=== PATIENT | male | born 1935 | race Caucasian/White ===

== ENCOUNTER 2021-05-14 12:45 | Inpatient (IN) ==
[2021-05-14] MEDS: Pyridoxine (B-6) 50 MG TABLET PO SCH (20:02)
[2021-05-15 07:22] LABS: Basophils % 0.2 %; Eosinophils # 0.1 K/mcL (0.0-0.6); Eosinophils % 1.1 %; Hematocrit 24.7 % (37.5-50.1); Hemoglobin 8.2 g/dL (12.9-16.9); Immature Granulocytes % 1.1 % (0-4); Lymphocytes # 0.9 K/mcL (0.6-4.6); Lymphocytes % 14.5 %; Mean Corpuscular HGB Conc 33.2 g/dL (31.6-35.5); Mean Corpuscular Hemoglobin 30.8 pg (28.0-33.3); Mean Corpuscular Volume 92.9 fL (83.0-100.0); Mean Platelet Volume 10.8 fL (9.4-12.4); Monocytes # 0.7 K/mcL (0.0-1.3); Monocytes % 11.2 %; Neutrophils # 4.5 K/mcL (1.6-8.9); Nucleated Red Blood Cells 0.3 /100 WBC (0); Platelet Count 146 K/mcL (140-400); Red Blood Count 2.66 M/mcL (4.19-5.50); Red Cell Distribution Width 17.1 % (11.5-14.5); Segmented Neutrophils % 71.9 %; White Blood Count 6.3 K/mcL (4.3-11.1)
[2021-05-15 07:47] LABS: BUN/Creatinine Ratio 29 (6-26); Blood Urea Nitrogen 35 mg/dL (8-23); Calcium 8.4 mg/dL (8.6-10.3); Carbon Dioxide 24 mEq/L (23-29); Chloride 100 mEq/L (98-107); Glucose 102 mg/dL (70-105); Osmolality,Calculated 280 (280-300); Potassium 4.3 mEq/L (3.5-5.1); Sodium 131 mEq/L (136-145); eGFR For African Americans > 60 (> 60); eGFR For Non-African Americans 58 (> 60)
[2021-05-15] MEDS: Aspirin Enteric Coated 81 MG Tablet PO SCH (09:34)
[2021-05-15] MEDS: amLODIPine 5 MG TABLET PO SCH (09:35)
[2021-05-15] MEDS: allopurinoL 300 MG TABLET PO SCH (09:35)
[2021-05-15] MEDS: Cyanocobalamin (B-12) 1,000 MCG TABLET PO SCH (09:35)
[2021-05-15] MEDS ORDERED: *HR* OxyCODONE/APAP 5/325 TABLET PO PRN (13:10)
[2021-05-15] MEDS: lisinopriL 10 MG TABLET PO SCH (13:58)
[2021-05-15] MEDS: Finasteride 5 MG TABLET PO SCH (13:58)
[2021-05-15] MEDS: Pyridoxine (B-6) 50 MG TABLET PO SCH (18:35)
[2021-05-15] MEDS: Neosporin OINT 15 GM TUBE TP SCH (20:10)
[2021-05-16 07:15] LABS: Hematocrit 24.2 % (37.5-50.1); Hemoglobin 7.9 g/dL (12.9-16.9); Mean Corpuscular HGB Conc 32.6 g/dL (31.6-35.5); Mean Corpuscular Hemoglobin 30.7 pg (28.0-33.3); Mean Corpuscular Volume 94.2 fL (83.0-100.0); Mean Platelet Volume 10.5 fL (9.4-12.4); Platelet Count 154 K/mcL (140-400); Red Blood Count 2.57 M/mcL (4.19-5.50); Red Cell Distribution Width 17.4 % (11.5-14.5)
[2021-05-16] MEDS: Aspirin Enteric Coated 81 MG Tablet PO SCH (08:29)
[2021-05-16] MEDS: Cyanocobalamin (B-12) 1,000 MCG TABLET PO SCH (08:29)
[2021-05-16] MEDS: amLODIPine 5 MG TABLET PO SCH (08:29)
[2021-05-16] MEDS: polyethylene glycoL 3350 17 GM POWD.PACK PO SCH (08:30)
[2021-05-16] MEDS: Finasteride 5 MG TABLET PO SCH (08:30)
[2021-05-16] MEDS: allopurinoL 300 MG TABLET PO SCH (08:30)
[2021-05-16] MEDS: lisinopriL 10 MG TABLET PO SCH (08:30)
[2021-05-16] MEDS: Pyridoxine (B-6) 50 MG TABLET PO SCH (18:19)
[2021-05-16] MEDS: Neosporin OINT 15 GM TUBE TP SCH (20:38)
[2021-05-17 07:31] LABS: Hemoglobin 8.2 g/dL (12.9-16.9); Mean Corpuscular HGB Conc 32.8 g/dL (31.6-35.5); Mean Corpuscular Hemoglobin 30.8 pg (28.0-33.3); Mean Platelet Volume 10.2 fL (9.4-12.4); Platelet Count 169 K/mcL (140-400); Red Blood Count 2.66 M/mcL (4.19-5.50); Red Cell Distribution Width 17.3 % (11.5-14.5); White Blood Count 6.9 K/mcL (4.3-11.1)
[2021-05-17 07:49] LABS: Calcium 8.2 mg/dL (8.6-10.3); Potassium 4.5 mEq/L (3.5-5.1)
[2021-05-17] MEDS: polyethylene glycoL 3350 17 GM POWD.PACK PO SCH (10:00)
[2021-05-17] MEDS: allopurinoL 300 MG TABLET PO SCH (10:04)
[2021-05-17] MEDS: Aspirin Enteric Coated 81 MG Tablet PO SCH (10:08)
[2021-05-17] MEDS: lisinopriL 10 MG TABLET PO SCH (10:08)
[2021-05-17] MEDS: Finasteride 5 MG TABLET PO SCH (10:08)
[2021-05-17] MEDS: amLODIPine 5 MG TABLET PO SCH (10:08)
[2021-05-17] MEDS: Cyanocobalamin (B-12) 1,000 MCG TABLET PO SCH (10:08)
[2021-05-17] MEDS: *HR* OxyCODONE/APAP 5/325 TABLET PO SCH ×2 (17:56→23:35)
[2021-05-17] MEDS: Pyridoxine (B-6) 50 MG TABLET PO SCH (17:56)
[2021-05-17] MEDS ORDERED: 0.9 % Sodium Chloride 1,000 ML IVC SCH (18:00)
[2021-05-17] MEDS: Sennosides/Docusate Sodium TABLET PO SCH (20:25)
[2021-05-17] MEDS: Neosporin OINT 15 GM TUBE TP SCH (20:26)
[2021-05-18] MEDS: *HR* OxyCODONE/APAP 5/325 TABLET PO SCH ×3 (06:03→17:38)
[2021-05-18] MEDS: Sennosides/Docusate Sodium TABLET PO SCH ×2 (08:02→19:45)
[2021-05-18] MEDS: polyethylene glycoL 3350 17 GM POWD.PACK PO SCH (08:02)
[2021-05-18] MEDS: amLODIPine 5 MG TABLET PO SCH (08:03)
[2021-05-18] MEDS: Aspirin Enteric Coated 81 MG Tablet PO SCH (08:03)
[2021-05-18] MEDS: Cyanocobalamin (B-12) 1,000 MCG TABLET PO SCH (08:03)
[2021-05-18] MEDS: Finasteride 5 MG TABLET PO SCH (08:03)
[2021-05-18] MEDS: allopurinoL 300 MG TABLET PO SCH (08:09)
[2021-05-18] MEDS: *HR* Enoxaparin 120 MG/0.8 ML SYRINGE SQ SCH (17:39)
[2021-05-18] MEDS: Pyridoxine (B-6) 50 MG TABLET PO SCH (19:44)
[2021-05-18] MEDS: Neosporin OINT 15 GM TUBE TP SCH (19:45)
[2021-05-19] MEDS: *HR* OxyCODONE/APAP 5/325 TABLET PO SCH ×4 (01:01→18:27)
[2021-05-19] MEDS ORDERED: *HR* Enoxaparin 40 MG/0.4 ML SYRINGE SQ SCH (06:00)
[2021-05-19] MEDS: *HR* Enoxaparin 120 MG/0.8 ML SYRINGE SQ SCH ×2 (06:13→18:27)
[2021-05-19 07:55] LABS: Basophils % 0.4 %; Eosinophils # 0.2 K/mcL (0.0-0.6); Eosinophils % 3.4 %; Hematocrit 23.8 % (37.5-50.1); Hemoglobin 7.7 g/dL (12.9-16.9); Immature Granulocytes % 1.8 % (0-4); Lymphocytes # 0.9 K/mcL (0.6-4.6); Lymphocytes % 18.4 %; Mean Corpuscular HGB Conc 32.4 g/dL (31.6-35.5); Mean Corpuscular Hemoglobin 30.9 pg (28.0-33.3); Mean Corpuscular Volume 95.6 fL (83.0-100.0); Mean Platelet Volume 10.4 fL (9.4-12.4); Monocytes # 0.5 K/mcL (0.0-1.3); Monocytes % 9.6 %; Neutrophils # 3.3 K/mcL (1.6-8.9); Nucleated Red Blood Cells 0.4 /100 WBC (0); Platelet Count 205 K/mcL (140-400); Red Blood Count 2.49 M/mcL (4.19-5.50); Red Cell Distribution Width 17.3 % (11.5-14.5); Segmented Neutrophils % 66.4 %
[2021-05-19 08:15] LABS: BUN/Creatinine Ratio 32 (6-26); Blood Urea Nitrogen 42 mg/dL (8-23); Calcium 8.1 mg/dL (8.6-10.3); Carbon Dioxide 25 mEq/L (23-29); Chloride 101 mEq/L (98-107); Glucose 87 mg/dL (70-105); Osmolality,Calculated 282 (280-300); Potassium 4.7 mEq/L (3.5-5.1); Sodium 131 mEq/L (136-145); eGFR For African Americans > 60 (> 60); eGFR For Non-African Americans 52 (> 60)
[2021-05-19] MEDS: Sennosides/Docusate Sodium TABLET PO SCH ×2 (09:51→20:59)
[2021-05-19] MEDS: amLODIPine 5 MG TABLET PO SCH (09:51)
[2021-05-19] MEDS: Finasteride 5 MG TABLET PO SCH (09:51)
[2021-05-19] MEDS: allopurinoL 300 MG TABLET PO SCH (09:51)
[2021-05-19] MEDS: Aspirin Enteric Coated 81 MG Tablet PO SCH (09:52)
[2021-05-19] MEDS: polyethylene glycoL 3350 17 GM POWD.PACK PO SCH (09:53)
[2021-05-19] MEDS: Neosporin OINT 15 GM TUBE TP SCH (09:56)
[2021-05-19] MEDS: Cyanocobalamin (B-12) 1,000 MCG TABLET PO SCH (10:04)
[2021-05-19 12:47] LABS: Hematocrit 23.9 % (37.5-50.1); Hemoglobin 7.7 g/dL (12.9-16.9)
[2021-05-19] MEDS: Pyridoxine (B-6) 50 MG TABLET PO SCH (18:30)
[2021-05-20] MEDS: *HR* OxyCODONE/APAP 5/325 TABLET PO SCH ×5 (00:37→23:48)
[2021-05-20] MEDS: *HR* Enoxaparin 120 MG/0.8 ML SYRINGE SQ SCH ×2 (06:37→16:32)
[2021-05-20 07:56] LABS: Basophils % 0.5 %; Eosinophils # 0.2 K/mcL (0.0-0.6); Eosinophils % 3.4 %; Hematocrit 24.7 % (37.5-50.1); Immature Granulocytes % 3.2 % (0-4); Lymphocytes # 0.9 K/mcL (0.6-4.6); Lymphocytes % 19.7 %; Mean Corpuscular HGB Conc 32.4 g/dL (31.6-35.5); Mean Corpuscular Hemoglobin 30.7 pg (28.0-33.3); Mean Corpuscular Volume 94.6 fL (83.0-100.0); Mean Platelet Volume 10.1 fL (9.4-12.4); Monocytes # 0.4 K/mcL (0.0-1.3); Monocytes % 8.6 %; Neutrophils # 2.9 K/mcL (1.6-8.9); Platelet Count 214 K/mcL (140-400); Red Blood Count 2.61 M/mcL (4.19-5.50); Red Cell Distribution Width 17.5 % (11.5-14.5); Segmented Neutrophils % 64.6 %; White Blood Count 4.4 K/mcL (4.3-11.1)
[2021-05-20] MEDS: Finasteride 5 MG TABLET PO SCH (09:37)
[2021-05-20] MEDS: Cyanocobalamin (B-12) 1,000 MCG TABLET PO SCH (09:37)
[2021-05-20] MEDS: Sennosides/Docusate Sodium TABLET PO SCH ×2 (09:37→19:23)
[2021-05-20] MEDS: Aspirin Enteric Coated 81 MG Tablet PO SCH (09:38)
[2021-05-20] MEDS: allopurinoL 300 MG TABLET PO SCH (09:38)
[2021-05-20] MEDS: polyethylene glycoL 3350 17 GM POWD.PACK PO SCH (09:38)
[2021-05-20] MEDS: amLODIPine 5 MG TABLET PO SCH (09:38)
[2021-05-20] MEDS: Neosporin OINT 15 GM TUBE TP SCH (19:30)
[2021-05-20] MEDS: Pyridoxine (B-6) 50 MG TABLET PO SCH (19:30)
[2021-05-21] MEDS: *HR* Enoxaparin 120 MG/0.8 ML SYRINGE SQ SCH ×2 (05:50→18:00)
[2021-05-21] MEDS: *HR* OxyCODONE/APAP 5/325 TABLET PO SCH ×3 (05:50→18:00)
[2021-05-21] MEDS: Aspirin Enteric Coated 81 MG Tablet PO SCH (09:10)
[2021-05-21] MEDS: Cyanocobalamin (B-12) 1,000 MCG TABLET PO SCH ×2 (09:10→19:57)
[2021-05-21] MEDS: Finasteride 5 MG TABLET PO SCH (09:10)
[2021-05-21] MEDS: Sennosides/Docusate Sodium TABLET PO SCH ×2 (09:10→20:10)
[2021-05-21] MEDS: allopurinoL 300 MG TABLET PO SCH (09:10)
[2021-05-21] MEDS: amLODIPine 5 MG TABLET PO SCH (09:10)
[2021-05-21] MEDS: polyethylene glycoL 3350 17 GM POWD.PACK PO SCH ×2 (09:11→11:53)
[2021-05-21] MEDS: Pyridoxine (B-6) 50 MG TABLET PO SCH (20:06)
[2021-05-21] MEDS: Neosporin OINT 15 GM TUBE TP SCH (20:20)
[2021-05-22] MEDS: *HR* OxyCODONE/APAP 5/325 TABLET PO SCH ×4 (00:16→17:01)
[2021-05-22] MEDS: *HR* Enoxaparin 120 MG/0.8 ML SYRINGE SQ SCH ×2 (05:42→17:01)
[2021-05-22] MEDS: polyethylene glycoL 3350 17 GM POWD.PACK PO SCH (07:33)
[2021-05-22] MEDS: Finasteride 5 MG TABLET PO SCH (07:33)
[2021-05-22] MEDS: Aspirin Enteric Coated 81 MG Tablet PO SCH (07:33)
[2021-05-22] MEDS: amLODIPine 5 MG TABLET PO SCH (07:33)
[2021-05-22] MEDS: Sennosides/Docusate Sodium TABLET PO SCH ×2 (07:33→21:06)
[2021-05-22] MEDS: allopurinoL 300 MG TABLET PO SCH (07:33)
[2021-05-22] MEDS: lisinopriL 10 MG TABLET PO SCH (07:34)
[2021-05-22] MEDS: Pyridoxine (B-6) 50 MG TABLET PO SCH (17:01)
[2021-05-22] MEDS: Neosporin OINT 15 GM TUBE TP SCH (21:07)
[2021-05-23] MEDS: *HR* OxyCODONE/APAP 5/325 TABLET PO SCH ×5 (00:37→23:18)
[2021-05-23] MEDS: *HR* Enoxaparin 120 MG/0.8 ML SYRINGE SQ SCH ×2 (06:19→18:46)
[2021-05-23 08:06] LABS: Hemoglobin 8.4 g/dL (12.9-16.9); Mean Corpuscular HGB Conc 32.3 g/dL (31.6-35.5); Mean Corpuscular Hemoglobin 30.7 pg (28.0-33.3); Mean Corpuscular Volume 94.9 fL (83.0-100.0); Mean Platelet Volume 9.9 fL (9.4-12.4); Platelet Count 242 K/mcL (140-400); Red Blood Count 2.74 M/mcL (4.19-5.50); Red Cell Distribution Width 18.2 % (11.5-14.5); White Blood Count 5.6 K/mcL (4.3-11.1)
[2021-05-23] MEDS: Finasteride 5 MG TABLET PO SCH (08:07)
[2021-05-23] MEDS: Aspirin Enteric Coated 81 MG Tablet PO SCH (08:07)
[2021-05-23] MEDS: amLODIPine 5 MG TABLET PO SCH (08:07)
[2021-05-23] MEDS: Sennosides/Docusate Sodium TABLET PO SCH ×2 (08:08→21:31)
[2021-05-23] MEDS: lisinopriL 10 MG TABLET PO SCH (08:08)
[2021-05-23] MEDS: Cyanocobalamin (B-12) 1,000 MCG TABLET PO SCH (08:08)
[2021-05-23] MEDS: allopurinoL 300 MG TABLET PO SCH (08:08)
[2021-05-23 08:32] LABS: BUN/Creatinine Ratio 30 (6-26); Blood Urea Nitrogen 31 mg/dL (8-23); Calcium 8.2 mg/dL (8.6-10.3); Carbon Dioxide 24 mEq/L (23-29); Chloride 104 mEq/L (98-107); Glucose 91 mg/dL (70-105); Osmolality,Calculated 284 (280-300); Potassium 4.3 mEq/L (3.5-5.1); Sodium 134 mEq/L (136-145); eGFR For African Americans > 60 (> 60); eGFR For Non-African Americans > 60 (> 60)
[2021-05-23] MEDS: Neosporin OINT 15 GM TUBE TP SCH (20:42)
[2021-05-23] MEDS: Pyridoxine (B-6) 50 MG TABLET PO SCH (21:32)
[2021-05-24] MEDS: *HR* OxyCODONE/APAP 5/325 TABLET PO SCH ×3 (05:44→18:45)
[2021-05-24] MEDS: *HR* Enoxaparin 120 MG/0.8 ML SYRINGE SQ SCH ×2 (05:45→18:45)
[2021-05-24] MEDS: allopurinoL 300 MG TABLET PO SCH (09:40)
[2021-05-24] MEDS: Aspirin Enteric Coated 81 MG Tablet PO SCH (09:40)
[2021-05-24] MEDS: amLODIPine 5 MG TABLET PO SCH (09:40)
[2021-05-24] MEDS: lisinopriL 10 MG TABLET PO SCH (09:40)
[2021-05-24] MEDS: Sennosides/Docusate Sodium TABLET PO SCH ×2 (09:40→19:52)
[2021-05-24] MEDS: Finasteride 5 MG TABLET PO SCH (09:40)
[2021-05-24] MEDS: Cyanocobalamin (B-12) 1,000 MCG TABLET PO SCH (09:40)
[2021-05-24] MEDS: Pyridoxine (B-6) 50 MG TABLET PO SCH (19:59)
[2021-05-24] MEDS: Neosporin OINT 15 GM TUBE TP SCH (20:00)
[2021-05-25] MEDS: *HR* OxyCODONE/APAP 5/325 TABLET PO SCH ×4 (01:03→17:39)
[2021-05-25] MEDS: *HR* Enoxaparin 120 MG/0.8 ML SYRINGE SQ SCH ×2 (06:14→17:40)
[2021-05-25] MEDS: amLODIPine 5 MG TABLET PO SCH (10:15)
[2021-05-25] MEDS: lisinopriL 10 MG TABLET PO SCH (10:15)
[2021-05-25] MEDS: Aspirin Enteric Coated 81 MG Tablet PO SCH (10:15)
[2021-05-25] MEDS: Finasteride 5 MG TABLET PO SCH (10:15)
[2021-05-25] MEDS: allopurinoL 300 MG TABLET PO SCH (10:15)
[2021-05-25] MEDS: Sennosides/Docusate Sodium TABLET PO SCH ×2 (10:16→20:42)
[2021-05-25] MEDS: Cyanocobalamin (B-12) 1,000 MCG TABLET PO SCH (10:16)
[2021-05-25] MEDS: Pyridoxine (B-6) 50 MG TABLET PO SCH (20:42)
[2021-05-25] MEDS: Neosporin OINT 15 GM TUBE TP SCH (20:43)
[2021-05-26] MEDS: *HR* OxyCODONE/APAP 5/325 TABLET PO SCH ×5 (01:49→21:06)
[2021-05-26] MEDS: Cyanocobalamin (B-12) 1,000 MCG TABLET PO SCH (10:22)
[2021-05-26] MEDS: Finasteride 5 MG TABLET PO SCH (10:22)
[2021-05-26] MEDS: Apixaban 5 MG TABLET PO SCH ×2 (10:22→21:07)
[2021-05-26] MEDS: allopurinoL 300 MG TABLET PO SCH (10:22)
[2021-05-26] MEDS: Aspirin Enteric Coated 81 MG Tablet PO SCH (10:22)
[2021-05-26] MEDS: amLODIPine 5 MG TABLET PO SCH (10:23)
[2021-05-26] MEDS: lisinopriL 10 MG TABLET PO SCH (10:23)
[2021-05-26] MEDS: Sennosides/Docusate Sodium TABLET PO SCH ×2 (10:23→21:07)
[2021-05-26] MEDS: Pyridoxine (B-6) 50 MG TABLET PO SCH (21:07)
[2021-05-26] MEDS: Neosporin OINT 15 GM TUBE TP SCH (22:10)
[2021-05-27] MEDS: *HR* OxyCODONE/APAP 5/325 TABLET PO SCH ×3 (06:28→16:52)
[2021-05-27] MEDS: lisinopriL 10 MG TABLET PO SCH (10:17)
[2021-05-27] MEDS: Cyanocobalamin (B-12) 1,000 MCG TABLET PO SCH (10:17)
[2021-05-27] MEDS: Apixaban 5 MG TABLET PO SCH ×2 (10:17→20:04)
[2021-05-27] MEDS: Aspirin Enteric Coated 81 MG Tablet PO SCH (10:17)
[2021-05-27] MEDS: amLODIPine 5 MG TABLET PO SCH (10:18)
[2021-05-27] MEDS: allopurinoL 300 MG TABLET PO SCH (10:18)
[2021-05-27] MEDS: Finasteride 5 MG TABLET PO SCH (10:18)
[2021-05-27] MEDS: Sennosides/Docusate Sodium TABLET PO SCH ×2 (10:18→20:03)
[2021-05-27] MEDS: Furosemide 40 MG/4 ML VIAL IVP SCH ×2 (16:52→18:01)
[2021-05-27] MEDS: Pyridoxine (B-6) 50 MG TABLET PO SCH (20:02)
[2021-05-27] MEDS: Neosporin OINT 15 GM TUBE TP SCH (20:04)
[2021-05-28] MEDS: *HR* OxyCODONE/APAP 5/325 TABLET PO SCH ×4 (00:48→17:18)
[2021-05-28 07:03] LABS: Hematocrit 22.1 % (37.5-50.1); Hemoglobin 6.8 g/dL (12.9-16.9); Mean Corpuscular HGB Conc 30.8 g/dL (31.6-35.5); Mean Corpuscular Hemoglobin 30.4 pg (28.0-33.3); Mean Corpuscular Volume 98.7 fL (83.0-100.0); Platelet Count 198 K/mcL (140-400); Red Blood Count 2.24 M/mcL (4.19-5.50); Red Cell Distribution Width 19.1 % (11.5-14.5); White Blood Count 4.7 K/mcL (4.3-11.1)
[2021-05-28 07:36] LABS: BUN/Creatinine Ratio 36 (6-26); Blood Urea Nitrogen 47 mg/dL (8-23); Calcium 8.1 mg/dL (8.6-10.3); Carbon Dioxide 24 mEq/L (23-29); Chloride 105 mEq/L (98-107); Glucose 89 mg/dL (70-105); Magnesium 1.8 mg/dL (1.6-2.6); Osmolality,Calculated 294 (280-300); Potassium 4.3 mEq/L (3.5-5.1); Sodium 136 mEq/L (136-145); eGFR For African Americans > 60 (> 60); eGFR For Non-African Americans 53 (> 60)
[2021-05-28] MEDS: Sennosides/Docusate Sodium TABLET PO SCH ×2 (09:53→19:58)
[2021-05-28] MEDS: Cyanocobalamin (B-12) 1,000 MCG TABLET PO SCH (09:54)
[2021-05-28] MEDS: allopurinoL 300 MG TABLET PO SCH (09:54)
[2021-05-28] MEDS: amLODIPine 5 MG TABLET PO SCH (09:54)
[2021-05-28] MEDS: Aspirin Enteric Coated 81 MG Tablet PO SCH (09:54)
[2021-05-28] MEDS: Finasteride 5 MG TABLET PO SCH (09:55)
[2021-05-28] MEDS: Apixaban 5 MG TABLET PO SCH ×2 (09:55→19:57)
[2021-05-28] MEDS: lisinopriL 10 MG TABLET PO SCH (09:55)
[2021-05-28] MEDS: Furosemide 40 MG/4 ML VIAL IVP SCH ×2 (09:58→17:18)
[2021-05-28] MEDS ORDERED: 0.9 % Sodium Chloride 250 ML ONE (14:54)
[2021-05-28] MEDS: Pyridoxine (B-6) 50 MG TABLET PO SCH (20:01)
[2021-05-28] MEDS: Neosporin OINT 15 GM TUBE TP SCH (20:02)
[2021-05-29] MEDS: *HR* OxyCODONE/APAP 5/325 TABLET PO SCH ×4 (05:23→17:29)
[2021-05-29 07:59] LABS: Basophils % 0.4 %; Eosinophils # 0.1 K/mcL (0.0-0.6); Eosinophils % 1.5 %; Hemoglobin 7.6 g/dL (12.9-16.9); Immature Granulocytes % 0.8 % (0-4); Lymphocytes % 18.9 %; Mean Corpuscular HGB Conc 31.7 g/dL (31.6-35.5); Mean Platelet Volume 9.8 fL (9.4-12.4); Monocytes # 0.5 K/mcL (0.0-1.3); Monocytes % 8.7 %; Neutrophils # 3.7 K/mcL (1.6-8.9); Nucleated Red Blood Cells 0.4 /100 WBC (0); Platelet Count 201 K/mcL (140-400); Red Blood Count 2.45 M/mcL (4.19-5.50); Red Cell Distribution Width 18.6 % (11.5-14.5); Segmented Neutrophils % 69.7 %; White Blood Count 5.3 K/mcL (4.3-11.1)
[2021-05-29 08:17] LABS: Calcium 8.2 mg/dL (8.6-10.3); Potassium 4.4 mEq/L (3.5-5.1)
[2021-05-29] MEDS: Cyanocobalamin (B-12) 1,000 MCG TABLET PO SCH (08:45)
[2021-05-29] MEDS: amLODIPine 5 MG TABLET PO SCH (08:45)
[2021-05-29] MEDS: allopurinoL 300 MG TABLET PO SCH (08:45)
[2021-05-29] MEDS: Aspirin Enteric Coated 81 MG Tablet PO SCH (08:46)
[2021-05-29] MEDS: Finasteride 5 MG TABLET PO SCH (08:46)
[2021-05-29] MEDS: lisinopriL 10 MG TABLET PO SCH (08:47)
[2021-05-29] MEDS: Furosemide 40 MG/4 ML VIAL IVP SCH ×2 (08:47→16:12)
[2021-05-29] MEDS: Sennosides/Docusate Sodium TABLET PO SCH ×2 (08:47→21:03)
[2021-05-29] MEDS: Apixaban 5 MG TABLET PO SCH ×2 (08:50→21:04)
[2021-05-29 09:19] LABS: % Iron Saturation 18 % (20-55); Iron 40 mcg/dL (65-175); Transferrin 156 mg/dL (203-362)
[2021-05-29 09:42] LABS: Folate 3.1 ng/mL (3.0-16.0)
[2021-05-29] MEDS: Neosporin OINT 15 GM TUBE TP SCH (21:04)
[2021-05-29] MEDS: Pyridoxine (B-6) 50 MG TABLET PO SCH (21:04)
[2021-05-30] MEDS: Furosemide 40 MG/4 ML VIAL IVP SCH (07:41)
[2021-05-30 08:04] LABS: Hematocrit 25.6 % (37.5-50.1); Hemoglobin 7.9 g/dL (12.9-16.9); Mean Corpuscular HGB Conc 30.9 g/dL (31.6-35.5); Mean Corpuscular Hemoglobin 30.4 pg (28.0-33.3); Mean Corpuscular Volume 98.5 fL (83.0-100.0); Platelet Count 231 K/mcL (140-400); Red Cell Distribution Width 18.7 % (11.5-14.5); White Blood Count 4.7 K/mcL (4.3-11.1)
[2021-05-30] MEDS: Finasteride 5 MG TABLET PO SCH (09:37)
[2021-05-30] MEDS: amLODIPine 5 MG TABLET PO SCH (09:38)
[2021-05-30] MEDS: allopurinoL 300 MG TABLET PO SCH (09:38)
[2021-05-30] MEDS: Apixaban 5 MG TABLET PO SCH ×2 (09:38→20:23)
[2021-05-30] MEDS: Aspirin Enteric Coated 81 MG Tablet PO SCH (09:38)
[2021-05-30] MEDS: Cyanocobalamin (B-12) 1,000 MCG TABLET PO SCH (09:38)
[2021-05-30] MEDS: lisinopriL 10 MG TABLET PO SCH (09:38)
[2021-05-30] MEDS: Sennosides/Docusate Sodium TABLET PO SCH ×2 (09:39→20:24)
[2021-05-30 09:55] LABS: Calcium 8.7 mg/dL (8.6-10.3); Potassium 4.3 mEq/L (3.5-5.1)
[2021-05-30] MEDS: *HR* OxyCODONE/APAP 5/325 TABLET PO PRN (11:02)
[2021-05-30] MEDS: Neosporin OINT 15 GM TUBE TP SCH (20:24)
[2021-05-30] MEDS: Pyridoxine (B-6) 50 MG TABLET PO SCH (20:38)
[2021-05-31 07:33] LABS: Basophils % 0.4 %; Eosinophils % 0.7 %; Immature Granulocytes % 0.9 % (0-4); Lymphocytes # 1.1 K/mcL (0.6-4.6); Lymphocytes % 19.5 %; Mean Corpuscular HGB Conc 30.8 g/dL (31.6-35.5); Mean Corpuscular Hemoglobin 30.3 pg (28.0-33.3); Mean Corpuscular Volume 98.5 fL (83.0-100.0); Mean Platelet Volume 9.6 fL (9.4-12.4); Monocytes # 0.5 K/mcL (0.0-1.3); Monocytes % 9.5 %; Neutrophils # 3.9 K/mcL (1.6-8.9); Platelet Count 233 K/mcL (140-400); Red Blood Count 2.64 M/mcL (4.19-5.50); Red Cell Distribution Width 18.8 % (11.5-14.5); White Blood Count 5.7 K/mcL (4.3-11.1)
[2021-05-31] MEDS: Cyanocobalamin (B-12) 1,000 MCG TABLET PO SCH (07:55)
[2021-05-31] MEDS: Apixaban 5 MG TABLET PO SCH (07:55)
[2021-05-31] MEDS: allopurinoL 300 MG TABLET PO SCH (07:55)
[2021-05-31] MEDS: Aspirin Enteric Coated 81 MG Tablet PO SCH (07:55)
[2021-05-31] MEDS: Sennosides/Docusate Sodium TABLET PO SCH ×2 (07:55→21:29)
[2021-05-31] MEDS: amLODIPine 5 MG TABLET PO SCH (07:56)
[2021-05-31] MEDS: Finasteride 5 MG TABLET PO SCH (07:56)
[2021-05-31] MEDS: *HR* OxyCODONE/APAP 5/325 TABLET PO PRN (09:39)
[2021-05-31 11:05] LABS: Calcium 8.7 mg/dL (8.6-10.3); Potassium 4.3 mEq/L (3.5-5.1)
[2021-05-31 14:10] LABS: Bilirubin,Urine Negative (Negative); Blood,Urine Large (Negative); Clarity,Urine Turbid (Clear); Color,Urine Yellow (Yellow); Glucose,Urine (UA) Normal (Normal); Ketones,Urine Trace mg/dL (Negative); Leukocyte Esterase,Urine Large (Negative); Nitrite,Urine Negative (Negative); Protein,Urine >=300 mg/dL (Neg-Trace); Specific Gravity,Urine 1.025 (1.010-1.025); Urobilinogen,Urine Normal (Normal)
[2021-05-31 14:11] LABS: Bacteria,Urine Many per hpf (None-Few); WBC,Urine TNTC per hpf (0-3)
[2021-05-31] MEDS: Cefdinir 300 MG CAPSULE PO SCH ×2 (15:52→21:29)
[2021-05-31] MEDS: Pyridoxine (B-6) 50 MG TABLET PO SCH (21:33)
[2021-05-31] MEDS: Neosporin OINT 15 GM TUBE TP SCH (21:33)
[2021-06-01 07:15] VITALS: RESP 18
[2021-06-01 07:16] LABS: Basophils % 0.2 %; Eosinophils % 0.7 %; Hematocrit 25.4 % (37.5-50.1); Hemoglobin 7.8 g/dL (12.9-16.9); Immature Granulocytes % 0.7 % (0-4); Lymphocytes % 18.5 %; Mean Corpuscular HGB Conc 30.7 g/dL (31.6-35.5); Mean Corpuscular Hemoglobin 30.5 pg (28.0-33.3); Mean Corpuscular Volume 99.2 fL (83.0-100.0); Mean Platelet Volume 10.2 fL (9.4-12.4); Monocytes # 0.6 K/mcL (0.0-1.3); Monocytes % 10.7 %; Neutrophils # 3.7 K/mcL (1.6-8.9); Nucleated Red Blood Cells 0.4 /100 WBC (0); Platelet Count 241 K/mcL (140-400); Red Blood Count 2.56 M/mcL (4.19-5.50); Red Cell Distribution Width 18.9 % (11.5-14.5); Segmented Neutrophils % 69.2 %; White Blood Count 5.4 K/mcL (4.3-11.1)
[2021-06-01 07:55] LABS: Calcium 8.4 mg/dL (8.6-10.3); Potassium 4.3 mEq/L (3.5-5.1)
[2021-06-01] MEDS: Cyanocobalamin (B-12) 1,000 MCG TABLET PO SCH (09:11)
[2021-06-01] MEDS: Cefdinir 300 MG CAPSULE PO SCH (09:11)
[2021-06-01] MEDS: allopurinoL 300 MG TABLET PO SCH (09:11)
[2021-06-01] MEDS: Aspirin Enteric Coated 81 MG Tablet PO SCH (09:11)
[2021-06-01] MEDS: Finasteride 5 MG TABLET PO SCH (09:11)
[2021-06-01] MEDS: amLODIPine 5 MG TABLET PO SCH (09:12)
[2021-06-01] MEDS: *HR* OxyCODONE/APAP 5/325 TABLET PO PRN (09:12)
[2021-06-01] MEDS: Sennosides/Docusate Sodium TABLET PO SCH (09:12)
[2021-06-01 11:30] VITALS: BP 114/52; PULSE 89; TEMP 97.8; O2SAT 94
[2021-06-02] MEDS ORDERED: Apixaban 5 MG TABLET PO SCH (09:00)
== END 2021-06-01 15:19 | disposition short-term general hospital (02) | DRG 560 ==
LOC: SUATTDRO 18:46 → INPPIK 18:46
PROVIDERS: ADMIT Internal Medicine; ATTEND Family Medicine

== ENCOUNTER 2021-06-07 14:39 | Inpatient (IN) ==
[2021-06-07] MEDS ORDERED: *HR* Dextrose 50 % in Water (Syg) 50 ML SYRINGE IVP PRN (15:23)
[2021-06-07] MEDS ORDERED: D5% in Water 1,000 ML IVC PRN (15:23)
[2021-06-07] MEDS ORDERED: Dextrose 4 GM Chewable Tablets PO PRN ×2 (15:23)
[2021-06-07] MEDS ORDERED: Ondansetron ODT 4 MG TAB.RAPDIS SL PRN (15:24)
[2021-06-07] MEDS ORDERED: polyethylene glycoL 3350 17 GM POWD.PACK PO PRN (15:25)
[2021-06-07] MEDS: Insulin LISPRO 300 UNITS/3 ML VIAL SUBQ SCH (18:01)
[2021-06-07] MEDS: Sennosides/Docusate Sodium TABLET PO SCH (20:52)
[2021-06-07] MEDS: Furosemide 20 MG TABLET PO SCH (23:59)
[2021-06-08 06:43] LABS: Basophils % 0.2 %; Eosinophils # 0.1 K/mcL (0.0-0.6); Eosinophils % 0.4 %; Hematocrit 28.2 % (37.5-50.1); Hemoglobin 8.8 g/dL (12.9-16.9); Immature Granulocytes % 0.7 % (0-4); Lymphocytes # 1.9 K/mcL (0.6-4.6); Lymphocytes % 16.6 %; Mean Corpuscular HGB Conc 31.2 g/dL (31.6-35.5); Mean Corpuscular Hemoglobin 29.9 pg (28.0-33.3); Mean Corpuscular Volume 95.9 fL (83.0-100.0); Mean Platelet Volume 10.1 fL (9.4-12.4); Monocytes % 7.3 %; Neutrophils # 8.7 K/mcL (1.6-8.9); Platelet Count 228 K/mcL (140-400); Red Blood Count 2.94 M/mcL (4.19-5.50); Red Cell Distribution Width 18.7 % (11.5-14.5); Segmented Neutrophils % 74.8 %; White Blood Count 11.6 K/mcL (4.3-11.1)
[2021-06-08 06:52] LABS: Monocytes # 0.9 K/mcL (0.0-1.3)
[2021-06-08 07:06] LABS: Calcium 8.7 mg/dL (8.6-10.3); Potassium 3.9 mEq/L (3.5-5.1)
[2021-06-08] MEDS: Insulin LISPRO 300 UNITS/3 ML VIAL SUBQ SCH ×3 (07:48→18:34)
[2021-06-08] MEDS ORDERED: amLODIPine 5 MG TABLET PO SCH (09:00)
[2021-06-08] MEDS: lisinopriL 20 MG TABLET PO SCH (09:58)
[2021-06-08] MEDS: Cyanocobalamin (B-12) 1,000 MCG TABLET PO SCH (09:58)
[2021-06-08] MEDS: Finasteride 5 MG TABLET PO SCH (09:58)
[2021-06-08] MEDS: Sennosides/Docusate Sodium TABLET PO SCH ×2 (09:58→21:27)
[2021-06-08] MEDS: allopurinoL 300 MG TABLET PO SCH (09:58)
[2021-06-08] MEDS: Pyridoxine (B-6) 50 MG TABLET PO SCH (09:59)
[2021-06-08] MEDS: Furosemide 20 MG TABLET PO SCH (09:59)
[2021-06-09 07:32] LABS: Hematocrit 26.5 % (37.5-50.1); Hemoglobin 8.3 g/dL (12.9-16.9); Mean Corpuscular HGB Conc 31.3 g/dL (31.6-35.5); Mean Corpuscular Hemoglobin 30.1 pg (28.0-33.3); Mean Platelet Volume 10.6 fL (9.4-12.4); Platelet Count 209 K/mcL (140-400); Red Blood Count 2.76 M/mcL (4.19-5.50); Red Cell Distribution Width 18.8 % (11.5-14.5); White Blood Count 8.3 K/mcL (4.3-11.1)
[2021-06-09 07:56] LABS: Calcium 8.3 mg/dL (8.6-10.3); Potassium 4.3 mEq/L (3.5-5.1)
[2021-06-09] MEDS: Insulin LISPRO 300 UNITS/3 ML VIAL SUBQ SCH ×2 (08:25→12:11)
[2021-06-09] MEDS: Cyanocobalamin (B-12) 1,000 MCG TABLET PO SCH (08:28)
[2021-06-09] MEDS: Finasteride 5 MG TABLET PO SCH (08:28)
[2021-06-09] MEDS: Sennosides/Docusate Sodium TABLET PO SCH ×2 (08:28→20:15)
[2021-06-09] MEDS: allopurinoL 300 MG TABLET PO SCH (08:28)
[2021-06-09] MEDS: Pyridoxine (B-6) 50 MG TABLET PO SCH (08:34)
[2021-06-10] MEDS: Insulin LISPRO 300 UNITS/3 ML VIAL SUBQ SCH ×4 (07:22→16:51)
[2021-06-10] MEDS: Finasteride 5 MG TABLET PO SCH (08:28)
[2021-06-10] MEDS: allopurinoL 300 MG TABLET PO SCH (08:28)
[2021-06-10] MEDS: Sennosides/Docusate Sodium TABLET PO SCH ×2 (08:29→19:49)
[2021-06-10] MEDS: Pyridoxine (B-6) 50 MG TABLET PO SCH (08:29)
[2021-06-10] MEDS: Cyanocobalamin (B-12) 1,000 MCG TABLET PO SCH (08:29)
[2021-06-10 08:39] LABS: Calcium 8.3 mg/dL (8.6-10.3); Potassium 4.2 mEq/L (3.5-5.1)
[2021-06-11 07:25] LABS: Hemoglobin 8.5 g/dL (12.9-16.9); Mean Corpuscular HGB Conc 30.4 g/dL (31.6-35.5); Mean Corpuscular Hemoglobin 29.4 pg (28.0-33.3); Mean Corpuscular Volume 96.9 fL (83.0-100.0); Mean Platelet Volume 10.2 fL (9.4-12.4); Platelet Count 215 K/mcL (140-400); Red Blood Count 2.89 M/mcL (4.19-5.50); Red Cell Distribution Width 18.6 % (11.5-14.5); White Blood Count 6.4 K/mcL (4.3-11.1)
[2021-06-11] MEDS: Insulin LISPRO 300 UNITS/3 ML VIAL SUBQ SCH ×3 (07:32→16:10)
[2021-06-11 08:21] LABS: Calcium 8.5 mg/dL (8.6-10.3); Potassium 4.3 mEq/L (3.5-5.1)
[2021-06-11] MEDS: allopurinoL 300 MG TABLET PO SCH (09:08)
[2021-06-11] MEDS: Pyridoxine (B-6) 50 MG TABLET PO SCH (09:08)
[2021-06-11] MEDS: Finasteride 5 MG TABLET PO SCH (09:08)
[2021-06-11] MEDS: lisinopriL 20 MG TABLET PO SCH (09:09)
[2021-06-11] MEDS: Sennosides/Docusate Sodium TABLET PO SCH ×2 (09:09→20:57)
[2021-06-11] MEDS: Cyanocobalamin (B-12) 1,000 MCG TABLET PO SCH (09:10)
[2021-06-11] MEDS: Furosemide 20 MG TABLET PO SCH (16:14)
[2021-06-12] MEDS: Finasteride 5 MG TABLET PO SCH (09:00)
[2021-06-12] MEDS: Furosemide 20 MG TABLET PO SCH ×2 (09:00→17:56)
[2021-06-12] MEDS: lisinopriL 20 MG TABLET PO SCH (09:00)
[2021-06-12] MEDS: Cyanocobalamin (B-12) 1,000 MCG TABLET PO SCH (09:00)
[2021-06-12] MEDS: Insulin LISPRO 300 UNITS/3 ML VIAL SUBQ SCH ×3 (09:00→16:30)
[2021-06-12] MEDS: Sennosides/Docusate Sodium TABLET PO SCH ×2 (09:00→21:01)
[2021-06-12] MEDS: allopurinoL 300 MG TABLET PO SCH (09:00)
[2021-06-12] MEDS: Pyridoxine (B-6) 50 MG TABLET PO SCH (09:04)
[2021-06-12] MEDS: Acetaminophen 325 MG TABLET PO PRN (09:16)
[2021-06-13] MEDS: Insulin LISPRO 300 UNITS/3 ML VIAL SUBQ SCH ×3 (07:35→16:55)
[2021-06-13] MEDS: Pyridoxine (B-6) 50 MG TABLET PO SCH (08:51)
[2021-06-13] MEDS: Cyanocobalamin (B-12) 1,000 MCG TABLET PO SCH (08:51)
[2021-06-13] MEDS: Finasteride 5 MG TABLET PO SCH (08:51)
[2021-06-13] MEDS: allopurinoL 300 MG TABLET PO SCH (08:51)
[2021-06-13] MEDS: Furosemide 20 MG TABLET PO SCH ×2 (08:52→17:04)
[2021-06-13] MEDS: Sennosides/Docusate Sodium TABLET PO SCH ×2 (08:52→20:29)
[2021-06-14 06:31] LABS: Basophils % 0.3 %; Eosinophils # 0.1 K/mcL (0.0-0.6); Eosinophils % 1.7 %; Hematocrit 27.4 % (37.5-50.1); Hemoglobin 8.5 g/dL (12.9-16.9); Immature Granulocytes % 1.3 % (0-4); Lymphocytes # 2.1 K/mcL (0.6-4.6); Lymphocytes % 27.9 %; Mean Corpuscular Hemoglobin 29.6 pg (28.0-33.3); Mean Corpuscular Volume 95.5 fL (83.0-100.0); Monocytes # 0.5 K/mcL (0.0-1.3); Monocytes % 6.1 %; Neutrophils # 4.8 K/mcL (1.6-8.9); Platelet Count 205 K/mcL (140-400); Red Blood Count 2.87 M/mcL (4.19-5.50); Red Cell Distribution Width 18.8 % (11.5-14.5); Segmented Neutrophils % 62.7 %; White Blood Count 7.7 K/mcL (4.3-11.1)
[2021-06-14 07:48] LABS: Calcium 8.7 mg/dL (8.6-10.3)
[2021-06-14] MEDS: Furosemide 20 MG TABLET PO SCH (09:56)
[2021-06-14] MEDS: allopurinoL 300 MG TABLET PO SCH (09:58)
[2021-06-14] MEDS: Cyanocobalamin (B-12) 1,000 MCG TABLET PO SCH (09:58)
[2021-06-14] MEDS: Finasteride 5 MG TABLET PO SCH (09:58)
[2021-06-14] MEDS: Pyridoxine (B-6) 50 MG TABLET PO SCH (09:59)
[2021-06-14] MEDS: Sennosides/Docusate Sodium TABLET PO SCH ×2 (09:59→20:47)
[2021-06-14] MEDS: Insulin LISPRO 300 UNITS/3 ML VIAL SUBQ SCH ×3 (10:00→16:54)
[2021-06-15] MEDS: Pyridoxine (B-6) 50 MG TABLET PO SCH (09:58)
[2021-06-15] MEDS: Sennosides/Docusate Sodium TABLET PO SCH ×2 (09:58→21:06)
[2021-06-15] MEDS: allopurinoL 300 MG TABLET PO SCH (09:58)
[2021-06-15] MEDS: Finasteride 5 MG TABLET PO SCH (09:58)
[2021-06-15] MEDS: Insulin LISPRO 300 UNITS/3 ML VIAL SUBQ SCH ×3 (09:58→17:02)
[2021-06-15] MEDS: Cyanocobalamin (B-12) 1,000 MCG TABLET PO SCH (09:58)
[2021-06-16] MEDS: Insulin LISPRO 300 UNITS/3 ML VIAL SUBQ SCH ×3 (08:09→17:06)
[2021-06-16] MEDS: Pyridoxine (B-6) 50 MG TABLET PO SCH (09:55)
[2021-06-16] MEDS: Finasteride 5 MG TABLET PO SCH (09:55)
[2021-06-16] MEDS: Cyanocobalamin (B-12) 1,000 MCG TABLET PO SCH (09:55)
[2021-06-16] MEDS: allopurinoL 300 MG TABLET PO SCH (09:55)
[2021-06-16] MEDS: Sennosides/Docusate Sodium TABLET PO SCH ×2 (09:55→20:41)
[2021-06-16] MEDS: lisinopriL 20 MG TABLET PO SCH (10:00)
[2021-06-16] MEDS: Furosemide 20 MG TABLET PO SCH (17:23)
[2021-06-17] MEDS: Insulin LISPRO 300 UNITS/3 ML VIAL SUBQ SCH ×3 (07:34→16:36)
[2021-06-17] MEDS: allopurinoL 300 MG TABLET PO SCH (08:37)
[2021-06-17] MEDS: Sennosides/Docusate Sodium TABLET PO SCH ×2 (08:38→21:18)
[2021-06-17] MEDS: Pyridoxine (B-6) 50 MG TABLET PO SCH (08:38)
[2021-06-17] MEDS: Finasteride 5 MG TABLET PO SCH (08:38)
[2021-06-17] MEDS: Cyanocobalamin (B-12) 1,000 MCG TABLET PO SCH (08:38)
[2021-06-17] MEDS: Furosemide 20 MG TABLET PO SCH ×2 (08:38→16:49)
[2021-06-17] MEDS: lisinopriL 20 MG TABLET PO SCH (08:39)
[2021-06-18] MEDS: Insulin LISPRO 300 UNITS/3 ML VIAL SUBQ SCH ×3 (07:35→16:25)
[2021-06-18 09:12] LABS: Hemoglobin 9.3 g/dL (12.9-16.9); Mean Corpuscular Hemoglobin 29.6 pg (28.0-33.3); Mean Corpuscular Volume 95.5 fL (83.0-100.0); Mean Platelet Volume 9.7 fL (9.4-12.4); Platelet Count 192 K/mcL (140-400); Red Blood Count 3.14 M/mcL (4.19-5.50); Red Cell Distribution Width 18.7 % (11.5-14.5)
[2021-06-18] MEDS: Cyanocobalamin (B-12) 1,000 MCG TABLET PO SCH (09:18)
[2021-06-18] MEDS: lisinopriL 20 MG TABLET PO SCH (09:18)
[2021-06-18] MEDS: Finasteride 5 MG TABLET PO SCH (09:18)
[2021-06-18] MEDS: Pyridoxine (B-6) 50 MG TABLET PO SCH (09:19)
[2021-06-18] MEDS: Furosemide 20 MG TABLET PO SCH ×2 (09:19→16:27)
[2021-06-18] MEDS: Sennosides/Docusate Sodium TABLET PO SCH ×2 (09:19→19:54)
[2021-06-18] MEDS: allopurinoL 300 MG TABLET PO SCH (09:19)
[2021-06-18 10:11] LABS: Calcium 8.9 mg/dL (8.6-10.3); Potassium 4.7 mEq/L (3.5-5.1)
[2021-06-19] MEDS: Insulin LISPRO 300 UNITS/3 ML VIAL SUBQ SCH ×3 (07:54→17:16)
[2021-06-19] MEDS: lisinopriL 20 MG TABLET PO SCH (09:09)
[2021-06-19] MEDS: Finasteride 5 MG TABLET PO SCH (09:09)
[2021-06-19] MEDS: Sennosides/Docusate Sodium TABLET PO SCH ×2 (09:09→20:22)
[2021-06-19] MEDS: Cyanocobalamin (B-12) 1,000 MCG TABLET PO SCH (09:09)
[2021-06-19] MEDS: Furosemide 20 MG TABLET PO SCH ×2 (09:10→17:19)
[2021-06-19] MEDS: allopurinoL 300 MG TABLET PO SCH (09:10)
[2021-06-19] MEDS: Pyridoxine (B-6) 50 MG TABLET PO SCH (09:11)
[2021-06-20] MEDS: Insulin LISPRO 300 UNITS/3 ML VIAL SUBQ SCH ×3 (08:04→16:23)
[2021-06-20] MEDS: Furosemide 20 MG TABLET PO SCH ×2 (08:14→16:27)
[2021-06-20] MEDS: Sennosides/Docusate Sodium TABLET PO SCH ×2 (08:14→20:30)
[2021-06-20] MEDS: lisinopriL 20 MG TABLET PO SCH (08:14)
[2021-06-20] MEDS: Finasteride 5 MG TABLET PO SCH (08:15)
[2021-06-20] MEDS: Cyanocobalamin (B-12) 1,000 MCG TABLET PO SCH (08:15)
[2021-06-20] MEDS: Pyridoxine (B-6) 50 MG TABLET PO SCH (08:15)
[2021-06-20] MEDS: allopurinoL 300 MG TABLET PO SCH (08:15)
[2021-06-20] MEDS: Acetaminophen 325 MG TABLET PO PRN (20:30)
[2021-06-21] MEDS: allopurinoL 300 MG TABLET PO SCH (10:10)
[2021-06-21] MEDS: Furosemide 20 MG TABLET PO SCH ×2 (10:10→18:50)
[2021-06-21] MEDS: Pyridoxine (B-6) 50 MG TABLET PO SCH (10:10)
[2021-06-21] MEDS: Insulin LISPRO 300 UNITS/3 ML VIAL SUBQ SCH ×3 (10:11→18:50)
[2021-06-21] MEDS: Sennosides/Docusate Sodium TABLET PO SCH ×2 (10:11→20:24)
[2021-06-21] MEDS: Cyanocobalamin (B-12) 1,000 MCG TABLET PO SCH (10:11)
[2021-06-21] MEDS: Finasteride 5 MG TABLET PO SCH (10:11)
[2021-06-21] MEDS: lisinopriL 20 MG TABLET PO SCH (10:17)
[2021-06-22] MEDS: Insulin LISPRO 300 UNITS/3 ML VIAL SUBQ SCH ×3 (07:17→16:31)
[2021-06-22 07:28] LABS: Hematocrit 28.4 % (37.5-50.1); Hemoglobin 8.7 g/dL (12.9-16.9); Mean Corpuscular HGB Conc 30.6 g/dL (31.6-35.5); Mean Corpuscular Hemoglobin 29.5 pg (28.0-33.3); Mean Corpuscular Volume 96.3 fL (83.0-100.0); Platelet Count 191 K/mcL (140-400); Red Blood Count 2.95 M/mcL (4.19-5.50); White Blood Count 6.7 K/mcL (4.3-11.1)
[2021-06-22 07:38] LABS: Calcium 8.8 mg/dL (8.6-10.3); Potassium 4.8 mEq/L (3.5-5.1)
[2021-06-22] MEDS: Acetaminophen 325 MG TABLET PO PRN (08:18)
[2021-06-22] MEDS: Finasteride 5 MG TABLET PO SCH (08:18)
[2021-06-22] MEDS: Pyridoxine (B-6) 50 MG TABLET PO SCH (08:18)
[2021-06-22] MEDS: Sennosides/Docusate Sodium TABLET PO SCH ×2 (08:18→20:23)
[2021-06-22] MEDS: allopurinoL 300 MG TABLET PO SCH (08:18)
[2021-06-22] MEDS: Cyanocobalamin (B-12) 1,000 MCG TABLET PO SCH (08:18)
[2021-06-22] MEDS: Furosemide 20 MG TABLET PO SCH (08:19)
[2021-06-23] MEDS: Insulin LISPRO 300 UNITS/3 ML VIAL SUBQ SCH ×3 (08:07→17:15)
[2021-06-23] MEDS: Cyanocobalamin (B-12) 1,000 MCG TABLET PO SCH (08:08)
[2021-06-23] MEDS: Pyridoxine (B-6) 50 MG TABLET PO SCH (08:08)
[2021-06-23] MEDS: Acetaminophen 325 MG TABLET PO PRN (08:08)
[2021-06-23] MEDS: allopurinoL 300 MG TABLET PO SCH (08:08)
[2021-06-23] MEDS: Sennosides/Docusate Sodium TABLET PO SCH ×2 (08:08→20:58)
[2021-06-23] MEDS: Finasteride 5 MG TABLET PO SCH (08:08)
[2021-06-23 08:15] LABS: Basophils % 0.2 %; Eosinophils # 0.2 K/mcL (0.0-0.6); Eosinophils % 2.6 %; Hematocrit 28.4 % (37.5-50.1); Immature Granulocytes % 0.9 % (0-4); Lymphocytes # 1.8 K/mcL (0.6-4.6); Lymphocytes % 27.4 %; Mean Corpuscular HGB Conc 31.7 g/dL (31.6-35.5); Mean Corpuscular Volume 94.7 fL (83.0-100.0); Mean Platelet Volume 10.4 fL (9.4-12.4); Monocytes # 0.4 K/mcL (0.0-1.3); Monocytes % 6.6 %; Neutrophils # 4.1 K/mcL (1.6-8.9); Platelet Count 186 K/mcL (140-400); Segmented Neutrophils % 62.3 %; White Blood Count 6.5 K/mcL (4.3-11.1)
[2021-06-23 08:35] LABS: Calcium 8.9 mg/dL (8.6-10.3); Potassium 4.7 mEq/L (3.5-5.1)
[2021-06-24] MEDS: Cyanocobalamin (B-12) 1,000 MCG TABLET PO SCH (11:07)
[2021-06-24] MEDS: Finasteride 5 MG TABLET PO SCH (11:07)
[2021-06-24] MEDS: Pyridoxine (B-6) 50 MG TABLET PO SCH (11:07)
[2021-06-24] MEDS: Sennosides/Docusate Sodium TABLET PO SCH ×2 (11:07→19:58)
[2021-06-24] MEDS: allopurinoL 300 MG TABLET PO SCH (11:07)
[2021-06-24] MEDS: Insulin LISPRO 300 UNITS/3 ML VIAL SUBQ SCH ×3 (11:08→16:34)
[2021-06-25 07:43] LABS: Hematocrit 28.6 % (37.5-50.1); Mean Corpuscular HGB Conc 31.5 g/dL (31.6-35.5); Mean Corpuscular Hemoglobin 29.9 pg (28.0-33.3); Mean Platelet Volume 10.2 fL (9.4-12.4); Platelet Count 153 K/mcL (140-400); Red Blood Count 3.01 M/mcL (4.19-5.50); Red Cell Distribution Width 19.2 % (11.5-14.5); White Blood Count 5.3 K/mcL (4.3-11.1)
[2021-06-25 07:59] LABS: Calcium 8.9 mg/dL (8.6-10.3)
[2021-06-25] MEDS: Insulin LISPRO 300 UNITS/3 ML VIAL SUBQ SCH ×3 (08:46→18:34)
[2021-06-25] MEDS: Cyanocobalamin (B-12) 1,000 MCG TABLET PO SCH (09:52)
[2021-06-25] MEDS: allopurinoL 300 MG TABLET PO SCH (09:52)
[2021-06-25] MEDS: Finasteride 5 MG TABLET PO SCH (09:52)
[2021-06-25] MEDS: Pyridoxine (B-6) 50 MG TABLET PO SCH (09:52)
[2021-06-25] MEDS: Sennosides/Docusate Sodium TABLET PO SCH ×2 (09:54→20:14)
[2021-06-25] MEDS: lisinopriL 20 MG TABLET PO SCH (09:54)
[2021-06-25] MEDS: Furosemide 20 MG TABLET PO SCH (18:37)
[2021-06-25] MEDS ORDERED: Acetaminophen 325 MG TABLET PO PRN (22:24)
[2021-06-26 07:09] VITALS: BP 138/68; PULSE 84; RESP 17; TEMP 98; O2SAT 100
[2021-06-26] MEDS: Insulin LISPRO 300 UNITS/3 ML VIAL SUBQ SCH (07:58)
[2021-06-26] MEDS: Finasteride 5 MG TABLET PO SCH (09:22)
[2021-06-26] MEDS: Cyanocobalamin (B-12) 1,000 MCG TABLET PO SCH (09:22)
[2021-06-26] MEDS: Pyridoxine (B-6) 50 MG TABLET PO SCH (09:22)
[2021-06-26] MEDS: lisinopriL 20 MG TABLET PO SCH (09:22)
[2021-06-26] MEDS: Furosemide 20 MG TABLET PO SCH (09:23)
[2021-06-26] MEDS: allopurinoL 300 MG TABLET PO SCH (09:23)
[2021-06-26] MEDS: Sennosides/Docusate Sodium TABLET PO SCH (09:24)
== END 2021-06-26 10:20 | disposition home health service (06) | DRG 605 ==
LOC: INPPIK 17:28
PROVIDERS: ADMIT Family Medicine; ATTEND Family Medicine